=== PATIENT | male | born 2000 | race Caucasian/White ===

== ENCOUNTER 2020-07-25 11:16 | Emergency (ER) | payer OTHER ==
[~2020-07-25] VITALS: Ht 175.3 cm; Wt 63.6 kg
[2020-07-25 11:30] VITALS: BP 120/55; Ht 175.3 cm; Wt 63.6 kg
[2020-07-25 13:12] LABS: BILIRUBIN NEGATIVE (NEGATIVE); KETONE NEGATIVE (NEGATIVE); NITRITE NEGATIVE (NEGATIVE); UROBILINOGEN NORMAL mg/dL (< 2)
[2020-07-25 13:14] LABS: BACTERIA FEW HPF (NONE SEEN); SQUAMOUS EPITHELIAL OCC HPF (0-4); WHITE CELLS - URINE 25-50 HPF (0-1)
== END 2020-07-25 12:57 | disposition home or self-care (01) ==
LOC: D.ER 11:16
PROVIDERS: Emergency Medicine
DX: R36.9 Urethral discharge, unspecified (principal); R30.0 Dysuria; Z20.2 Contact with and (suspected) exposure to infections with a predominantly sexual mode of transmission